=== PATIENT | male | born 1955 | race Caucasian/White ===

== ENCOUNTER 2018-03-20 07:26 | Day surgery (SDC) | payer BC ==
[~2018-03-20 07:26] MED LIST: DIPHENHYDRAMINE HCL 50 MG/ML VIAL ONE; EPINEPHRINE INJ 1 MG/10 ML DISP.SYRIN ONE; FLUMAZENIL INJ 0.5 MG/5 ML VIAL ONE; GLUCAGON,HUMAN RECOMB 1 MG INJ ONE; NALOXONE HCL INJ/PF 0.4 MG/1 ML SDV ONE; ONDANSETRON HCL INJ/PF 4 MG/2 ML SDV ONE
[2018-03-20] MEDS: MIDAZOLAM 2 MG/2 ML INJ ONE ×5 (07:59→08:13)
[2018-03-20] MEDS: FENTANYL CITRATE INJ/PF 100 MCG/2 ML AMPUL ONE ×3 (08:01→08:09)
--- NOTE | 2018-03-20 08:32 | Discharge Summary ---
Discharge Summary (SDC) - Discharge Final Diagnosis: Normal colonoscopy; scattered diverticulosis Date of Surgery: 03/20/18 Discharge Date: 03/20/18 Condition: Good Treatment or Instructions: [place] [id number] POST ENDOSCOPY DISCHARGE INSTRUCTIONS 1. Diet: Start clear liquids that a regular diet as tolerated. 2. Resume all preoperative medications. All oral anticoagulants and aspirins can be resumed 24 hours after procedure. 3. If a polypectomy was performed some bleeding per rectum may occur. This should stop within 3 days. If not, please contact the office. 4. If you had a colonoscopy you may experience some bloating and delayed return of normal bowel function for several days, your regular bowel movement pattern should resume within a week. 5. Please contact [facility] at to make an appointment with Dr. Mcdermott for 1 to 3 weeks following procedure. 6. If you have any questions or concerns regarding your care,treatment plan or follow up, please contact our office. 7. Per clinical guidelines we recommend you undergo a repeat colonoscopy in 5 years. Referrals: NICKOLAS ADAMS MD [Primary Care Provider] - Discharge Diet: As Tolerated Discharge Activity: Activity As Tolerated Home Care Assistance: None Needed Report the Following to Your Physician Immediately: Shortness of Breath, Increase in Pain, Fever over 101 Degrees
--- NOTE | 2018-03-20 08:37 | Operative Report ---
Operative Report DATE OF SURGERY: 03/20/18 PREOPERATIVE DIAGNOSIS: personal history of colon polyps POSTOPERATIVE DIAGNOSIS: same; diverticuloses; OPERATION: total colonoscopy to cecum SURGEON: DARREN THOMAS ANESTHESIA: Moderate Sedation TISSUE REMOVED OR ALTERED: none COMPLICATIONS: none ESTIMATED BLOOD LOSS: none INTRAOPERATIVE FINDINGS: see below PROCEDURE: Obtaining informed consent the patient was taken from the preoperative holding area to the main endoscopy suite where monitoring devices were attached to the patient. Plan and surgical timeout were conducted The patient was placed in the left lateral decubitus position with knees to chest. A perianal examination was performed. There was no visible or palpable anorectal pathology. Sphincter tone was felt to be normal. The flexible adult colonoscope was advanced through the anal rectal canal, all the way to the cecum. Visualization of the cecum was achieved and the ileocecal valve, the appendiceal orifice and transillumination of the anterior abdominal wall all appreciated. This was an excellent study on the well- prepped bowel. The colonoscope was withdrawn slowly and methodically checked and the mucosa carefully. There was no evidence of tumor, stricture, bleeding or polyps. There were scatterede diverticuloses. The scope was slowly withdrawn through the anal rectal canal. Complete visualization of the rectum was achieved with photodocumentation. The scope was withdrawn to the patient's anus. The patient tolerated the procedure well and was taken to the recovery area in stable condition. Per surveillance guidelines, patient should have f/u colonoscopy in 5 years.
[2018-03-20 09:24] VITALS: BP 125/71
== END 2018-03-20 09:25 | disposition home or self-care (01) ==
LOC: END 07:26
PROVIDERS: ATTEND Surgery
DX: Z12.11 Encounter for screening for malignant neoplasm of colon (principal); Z86.010 Personal history of colon polyps; K57.30 Diverticulosis of large intestine without perforation or abscess without bleeding; I10 Essential (primary) hypertension; E78.00 Pure hypercholesterolemia, unspecified; Z88.0 Allergy status to penicillin; Z79.899 Other long term (current) drug therapy; Z79.891 Long term (current) use of opiate analgesic
CPT/HCPCS: 45378; J2250; J3010; J0171; J1200; J1610; J2310; J2405; J3490

== ENCOUNTER 2019-01-15 06:45 | Day surgery (SDC) | payer BC ==
[~2019-01-15 06:45] MED LIST changes: -DIPHENHYDRAMINE HCL 50 MG/ML VIAL ONE; -EPINEPHRINE INJ 1 MG/10 ML DISP.SYRIN ONE; -FLUMAZENIL INJ 0.5 MG/5 ML VIAL ONE; -GLUCAGON,HUMAN RECOMB 1 MG INJ ONE; +KETOROLAC TROMETHAMINE 0.45% 4 DROP/0.4 ML DROPERETTE OS PRN; -NALOXONE HCL INJ/PF 0.4 MG/1 ML SDV ONE; -ONDANSETRON HCL INJ/PF 4 MG/2 ML SDV ONE; +TETRACAINE HCL 0.5% OPH SOLN 0.6 ML DROPERETTE OS PRN
[2019-01-15] MEDS ORDERED: FENTANYL CITRATE INJ/PF 100 MCG/2 ML AMPUL ONE ×2 (06:52→07:16)
[2019-01-15] MEDS ORDERED: MIDAZOLAM 2 MG/2 ML INJ ONE ×2 (06:52→07:15)
[2019-01-15] MEDS ORDERED: CHONDR SU A NA/HYALUR INTRAOC KIT (SURGICARE) ONE (07:09)
[2019-01-15] MEDS ORDERED: LIDOCAINE 1%/PHENYLEPHRINE 1.5% 1 ML VIAL ONE (07:09)
[2019-01-15] MEDS ORDERED: EPINEPHRINE INJ/PF 1 MG/1 ML AMPULE ONE (07:09)
[2019-01-15] MEDS: TETRACAINE HCL 0.5% OPH SOLN 4 ML OS PRN ×3 (07:13→07:48)
[2019-01-15] MEDS: CYCLOPENTOLATE 0.2%/PHENYLEPHRINE 1% OPH SOLN 2 ML OS PRN ×3 (07:14→07:37)
[2019-01-15] MEDS: TROPICAMIDE 1% OPH SOLN 3 ML OS PRN ×3 (07:14→07:37)
[2019-01-15] MEDS: BESIFLOXACIN HCL 0.6% OPH SUSP 5 ML BOTTLE OS PRN ×4 (07:14→08:12)
[2019-01-15] MEDS ORDERED: ONDANSETRON HCL INJ/PF 4 MG/2 ML SDV ONE (07:15)
[2019-01-15] MEDS ORDERED: CHONDR SU A NA/HYALUR SOD 0.5 ML DISP.SYRIN ONE (08:09)
[2019-01-15] MEDS: DORZOLAMIDE HCL 2%/TIMOLOL MALEAT 0.5% OPH SOLN 10 ML OS PRN ×2 (08:12)
--- NOTE | 2019-01-15 20:30 | [facility] DISCHARGE SUMMARY E ---
[facility] Discharge Summary NAME: AZC PETE AGE: 63Y ADMITTED: 01/15/2019 DISCHARGED: 01/15/2019 FINAL DIAGNOSIS: CATARACT, LEFT EYE. HISTORY/CLINIC COURSE: This is A 63-year-old patient who underwent cataract extraction of the left eye. He underwent surgery because he was having difficulty driving at night secondary to glare from headlights. He should be on a regular diet. No bending at the waist, no heavy lifting. They should use the Besivance, PROLENSA, and Durezol at 3 p.m. and 8 p.m., and sleep with a rigid shield. I will see him for 1 day postoperative tomorrow. DICTATING PHYSICIAN: JONNIE CALLES M.D. [id number] PHY#: [id number] ID: [id number] JOB#: [id number] ACCT: [id number] cc:JONNIE CALLES M.D. >
--- NOTE | 2019-01-15 20:30 | [facility] OPERATIVE REPORT E ---
[facility] Operative Report NAME: ZAC PETE AGE: 63Y DATE OF SURGERY: 01/15/2019 ROOM: PREOPERATIVE DIAGNOSIS: CATARACT, LEFT EYE. POSTOPERATIVE DIAGNOSIS: CATARACT, LEFT EYE. OPERATION: Cataract extraction with insertion of an IOL of the left eye. SURGEON: JONNIE CALLES M.D. ANESTHESIA: Topical. PROCEDURE: After obtaining appropriate consent, the patient's left eye was prepped and draped in sterile fashion as well as the surgeon in a sterile manner and cataract surgery was started. First a paracentesis blade was used to make a side-port incision. Viscoelastic was used to inflate the anterior chamber. Next a 2.4 mm incision was made with a 2.4 mm blade, clear corneal temporally. A continuous capsulorrhexis was made using a cystotome and Utrata forceps. Following this hydrodissection was carried out to make the lens fully loose and mobile and it was rotated 90 degrees. Following this, a rckwba-rfl-dxkmkpe technique was used to phacoemulsify the lens with a CDE of 8.14. The remaining cortex was removed with irrigation/aspiration. Provisc was instilled into the capsular bag to inflate the bag. A SN60WF, 14.5 diopter lens was placed. The remaining viscoelastic material was removed with irrigation/aspiration. Following this, the incision was found to be watertight. Besivance was instilled into the eye and a protective shield was placed over the eye. The patient returned to the postoperative recovery in stable condition. DICTATING PHYSICIAN: JONNIE CALLES M.D. [id number] PHY#: [id number] ID: [id number] JOB#: [id number] ACCT: [id number] cc:JONNIE CALLES M.D. > MTDD
== END 2019-01-15 08:51 | disposition home or self-care (01) ==
LOC: SC 06:45
PROVIDERS: ATTEND Internal Medicine
DX: H25.812 Combined forms of age-related cataract, left eye (principal); I10 Essential (primary) hypertension; Z79.899 Other long term (current) drug therapy; Z88.0 Allergy status to penicillin
CPT/HCPCS: 66984; V2632; J2250; J3490 ×3; J0171; J3010; J2405; J2370

== ENCOUNTER 2019-02-05 09:34 | Day surgery (SDC) | payer BC ==
[~2019-02-05 09:34] MED LIST changes: +CHONDR SU A NA/HYALUR INTRAOC KIT (SURGICARE) ONE; +EPINEPHRINE INJ/PF 1 MG/1 ML AMPULE ONE; +KETOROLAC TROMETHAMINE 0.45% 4 DROP/0.4 ML DROPERETTE OD PRN; -KETOROLAC TROMETHAMINE 0.45% 4 DROP/0.4 ML DROPERETTE OS PRN; +LIDOCAINE 1%/PHENYLEPHRINE 1.5% 1 ML VIAL ONE; -TETRACAINE HCL 0.5% OPH SOLN 0.6 ML DROPERETTE OS PRN
[2019-02-05] MEDS ORDERED: MIDAZOLAM 2 MG/2 ML INJ ONE (10:19)
[2019-02-05] MEDS: CYCLOPENTOLATE 0.2%/PHENYLEPHRINE 1% OPH SOLN 2 ML OD PRN ×3 (10:40→11:00)
[2019-02-05] MEDS: TROPICAMIDE 1% OPH SOLN 3 ML OD PRN ×3 (10:40→11:00)
[2019-02-05] MEDS: BESIFLOXACIN HCL 0.6% OPH SUSP 5 ML BOTTLE OD PRN ×4 (10:40→11:24)
[2019-02-05] MEDS: TETRACAINE HCL 0.5% OPH SOLN 4 ML OD PRN ×3 (10:41→11:04)
[2019-02-05] MEDS: DORZOLAMIDE HCL 2%/TIMOLOL MALEAT 0.5% OPH SOLN 10 ML OD PRN ×2 (11:24)
--- NOTE | 2019-02-06 08:29 | [facility] OPERATIVE REPORT E ---
[facility] Operative Report NAME: ZAC PETE AGE: 63Y DATE OF SURGERY: 02/05/2019 ROOM: PREOPERATIVE DIAGNOSIS: CATARACT, RIGHT EYE. POSTOPERATIVE DIAGNOSIS: CATARACT, RIGHT EYE. OPERATION: Cataract extraction with insertion of an IOL of the right eye. SURGEON: JONNIE CALLES M.D. ANESTHESIA: Topical. PROCEDURE: After obtaining appropriate consent, the patient's right eye was prepped and draped in sterile fashion as well as the surgeon in a sterile manner and cataract surgery was started. First a paracentesis blade was used to make a side-port incision. Viscoelastic was used to inflate the anterior chamber. Next a 2.4 mm incision was made with a 2.4 mm blade, clear corneal temporally. A continuous capsulorrhexis was made using a cystotome and Utrata forceps. Following this hydrodissection was carried out to make the lens fully loose and mobile and it was rotated 90 degrees. Following this, a wovnnt-caf-tnkzitj technique was used to phacoemulsify the lens with a CDE of 5.24. The remaining cortex was removed with irrigation/aspiration. Provisc was instilled into the capsular bag to inflate the bag. A SN60WF, 14.0 diopter lens was placed. The remaining viscoelastic material was removed with irrigation/aspiration. Following this, the incision was found to be watertight. Besivance was instilled into the eye and a protective shield was placed over the eye. The patient returned to the postoperative recovery in stable condition. DICTATING PHYSICIAN: JONNIE CALLES M.D. [id number] PHY#: [id number] ID: [id number] JOB#: [id number] ACCT: [id number] cc:JONNIE CALLES M.D. >
--- NOTE | 2019-02-06 08:35 | [facility] DISCHARGE SUMMARY E ---
[facility] Discharge Summary NAME: ZAC PETE AGE: 63Y ADMITTED: 02/05/2019 DISCHARGED: 02/05/2019 DIAGNOSIS: CATARACT, RIGHT EYE. SUMMARY: This is a 63-year-old patient who underwent cataract extraction of the right eye. He underwent surgery because he was having trouble seeing road signs. DISCHARGE INSTRUCTIONS: He should be on a regular diet, no bending at the waist, and no heavy lifting. He should use his Besivance, Prolensa, and Durezol at 3 p.m. and 8 p.m. and sleep with a rigid shield. I will see him for a 1-day postoperative tomorrow. DICTATING PHYSICIAN: JONNIE CALLES M.D. [id number] PHY#: [id number] ID: [id number] JOB#: [id number] ACCT: [id number] cc:JONNIE CALLES M.D. >
== END 2019-02-05 12:03 | disposition home or self-care (01) ==
LOC: SC 09:34
PROVIDERS: ATTEND Internal Medicine
DX: H25.811 Combined forms of age-related cataract, right eye (principal); Z96.1 Presence of intraocular lens; I10 Essential (primary) hypertension; Z79.899 Other long term (current) drug therapy
CPT/HCPCS: 66984; V2632; J2250; J3490 ×2; J0171; J2370